=== PATIENT | female | born 2000 | race African-American/Black ===

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

== ENCOUNTER 2019-03-08 15:04 | Emergency (ER) | payer OTHER ==
[2019-03-08 15:39] LABS: Bilirubin Negative (Negative); Blood, Urine Large (Negative); Clarity CLOUDY (Clear); Glucose, Urine (Dipstick) Negative (Negative); Leukocyte Negative (Negative); Nitrite Negative (Negative); Protein, Urine (Dipstick) Negative (Neg-Trace)
[2019-03-08 15:40] LABS: Pregnancy Test - Urine (BHCG) Negative (Negative); Pregu Control Background? CLEAR/WHITE (CLR/WHITE); Pregu Control Bar Appear? YES (CONTROL BAR)
[2019-03-08 15:41] LABS: Hyaline Casts/LPF 0-3 HYALINE CAST LPF (0-3 Hyaline); Pathc Cast-AUWi Flag 0.27 (0-2.49); RBC/HPF 0-3 HPF (0-3)
[2019-03-08 15:42] LABS: Yeast-AUWi Flag 31.6 (0-25.0)
[2019-03-08 15:52] LABS: Bacteria/HPF Rare-Few HPF (None Seen); Yeast-All Forms None Seen HPF (None Seen)
== END 2019-03-08 16:26 | disposition home or self-care (01) ==
LOC: ERS 15:04
DX: R31.9 Hematuria, unspecified (principal)
CPT/HCPCS: 81003; 81015; 81025; 87086; 99283

== ENCOUNTER 2025-05-02 15:45 | Emergency (ER) | payer SELFPAY ==
[2025-05-02] MEDS ORDERED: diphenhydrAMINE 50 MG/ML VIAL ONE (17:17)
[2025-05-02] MEDS ORDERED: Acetaminophen 500 MG TAB ONE (17:17)
[2025-05-02] MEDS ORDERED: Metoclopramide HCl 10 MG (2 mL) VIAL ONE (17:17)
== END 2025-05-02 18:25 | disposition home or self-care (01) ==
LOC: ERS 15:45
DX: R51.9 Headache, unspecified (principal); F17.290 Nicotine dependence, other tobacco product, uncomplicated
CPT/HCPCS: 96365; 96375; J1200; J2765; J2919

== ENCOUNTER 2025-06-18 08:22 | Emergency (ER) | payer SELFPAY ==
[2025-06-18] MEDS ORDERED: Ondansetron PF 4 MG/2 ML Vial ONE (09:04)
[2025-06-18] MEDS ORDERED: Ketorolac Tromethamine 30 MG (1 mL) VIAL ONE (09:04)
[2025-06-18 09:32] LABS: #Basophils 0.04 10x3/uL (0.0-0.2); #Eosinophils 0.12 10x3/uL (0.0-0.7); #Monocytes 0.22 10x3/uL (0.11-0.59); #Neutrophils 1.43 10x3/uL (1.40-6.50); %Basophils 0.9 % (0.0-1.0); %Eosinophils 2.8 % (0.0-10.0); %Lymphocytes 57.2 % (21.0-51.0); %Monocytes 5.2 % (0.0-10.0); %Neutrophils 33.9 % (42.0-75.0); Hematocrit 38.9 % (36.0-47.0); Hemoglobin 12.5 g/dL (12.0-16.0); Mean Corpuscular Hemoglobin 26.5 pg (27.0-31.0); Mean Corpuscular Volume 82.6 fL (78.0-98.0); Platelet Count 158 10x3/uL (130-400); Red Blood Cell (RBC) Count 4.71 mill/uL (4.20-5.40); White Blood Cell (WBC) Count 4.23 10x3/uL (4.8-10.8)
[2025-06-18 09:42] LABS: BHCG - Serum Negative (NEGATIVE); Pregs Control Background? CLEAR/WHITE (CLR/WHITE); Pregs Control Bar Appear? YES (CONTROL BAR)
[2025-06-18 09:49] LABS: ALT (SGPT) 8 U/L (Less than 34); AST (SGOT) 15 U/L (11-34); Albumin 3.5 g/dL (3.1-4.5); Alkaline Phosphatase 47 U/L (40-110); Anion Gap 11 mmol/L (10-20); BUN (Urea Nitrogen) 16 mg/dL (7.0-18.7); Bilirubin, Total 0.3 mg/dL (0.3-1.2); Calc. Creatinine Clearance 0 mL/min (70-130); Calcium 8.4 mg/dL (7.8-10.44); Carbon Dioxide 25 mmol/L (22-29); Chloride 107 mmol/L (98-107); Globulin 2.3 g/dL (2.4-3.5); Glucose 85 mg/dL (70-105); Lipase 21 U/L (8-78); Potassium 3.5 mmol/L (3.5-5.1); Sodium 139 mmol/L (136-145)
[2025-06-18] MEDS ORDERED: Iopamidol-370 76% 500 ML MDV (1 ML CHARGE) ONE (15:46)
== END 2025-06-18 10:42 | disposition home or self-care (01) ==
LOC: ERS 08:22
DX: R11.2 Nausea with vomiting, unspecified (principal); R19.7 Diarrhea, unspecified; Z55.6 Problems related to health literacy
CPT/HCPCS: 74177; 80053; 83690; 84703; 85025; 96374; 96375; J1885; Q9967